=== PATIENT | male | born 1990 | race Caucasian/White ===

== ENCOUNTER 2024-05-04 20:08 | Emergency (ER) | payer OTHER ==
[2024-05-04 20:54] LABS: BASOPHILS % (AUTO) 0.1 %; EOSINOPHILS % (AUTO) 0.1 %; HCT - HEMATOCRIT 43.9 % (42.0-52.0); HGB - HEMOGLOBIN 14.5 g/dL (14.0-18.0); LYMPHOCYTES # (AUTO) 1.5 10^3/uL (1.5-3.5); LYMPHOCYTES % (AUTO) 11.3 %; MEAN CORPUSCULAR HEMOGLOBIN 28.4 pg (27.0-31.0); MEAN CORPUSCULAR VOLUME 85.9 fL (80.0-94.0); MEAN PLATELET VOLUME 8.9 fL (7.4-11.4); MONOCYTES # (AUTO) 0.8 10^3/uL (0.0-1.0); MONOCYTES % (AUTO) 6.3 %; NEUTROPHILS # (AUTO) 10.6 10^3/uL (1.5-6.6); NEUTROPHILS % (AUTO) 81.9 %; PLT - PLATELET COUNT 247 10^3/uL (130-450); RED BLOOD COUNT 5.11 10^6/uL (4.70-6.10); RED CELL DISTRIBUTION WIDTH 13.4 % (12.0-15.0); WHITE BLOOD COUNT 12.9 x10^3/uL (4.8-10.8)
[2024-05-04 21:06] LABS: ALBUMIN 4.1 g/dL (3.2-5.5); ALBUMIN/GLOBULIN RATIO 1.4 (1.0-2.2); BILIRUBIN,TOTAL 0.6 mg/dL (0.2-1.0); CALCIUM 9.3 mg/dL (8.5-10.3); CREATININE 1.3 mg/dL (0.6-1.3); POTASSIUM 4.3 mmol/L (3.5-4.5); TOTAL PROTEIN 7.1 g/dL (6.4-8.9)
[2024-05-04 21:06] LABS: BILIRUBIN,URINE NEGATIVE (NEGATIVE); GLUCOSE, URINE (UA) NEGATIVE (NEGATIVE); KETONES,URINE (UA) NEGATIVE (NEGATIVE); LEUKOCYTE ESTERASE, URINE NEGATIVE (NEGATIVE); NITRITE,URINE NEGATIVE (NEGATIVE); OCCULT BLOOD,URINE TRACE-INTA (NEGATIVE); PROTEIN,URINE NEGATIVE (NEGATIVE); UROBILINOGEN,URINE 0.2 (NORMAL) E.U./dL (NORMAL)
[2024-05-04 21:08] LABS: CLARITY,URINE CLEAR (CLEAR)
[2024-05-04] MEDS: SODIUM CHLORIDE 0.9% 1,000 ML IV STA (23:05)
[2024-05-04] MEDS: ONDANSETRON 4 MG/2 ML VIAL IVP STA (23:06)
[2024-05-04] MEDS: SODIUM CHLORIDE 0.9% 1,000 ML IV ONE (23:07)
[2024-05-05] MEDS ORDERED: iohexoL-300 100 ML VIAL ONE (00:51)
[2024-05-05] MEDS: iohexoL-300 100 ML VIAL IVP ONE (01:12)
--- NOTE | 2024-05-05 01:21 | CT Report ---
PROCEDURE: Abdomen/Pelvis W INDICATIONS: RLQ abd pain CONTRAST: OMNI 300, 100mls TECHNIQUE: After the administration of intravenous contrast, a CT scan of the abdomen and pelvis was performed. Images were recorded and evaluated at appropriate window settings. Reformats: coronal and sagittal. F or radiation dose reduction, the following was used: automated exposure control, adjustment of mA and /or kV according to patient size. COMPARISON: None. FINDINGS: Image quality: Diagnostic. Lower chest: Unremarkable. Liver: No solid mass. Gallbladder: No radiopaque stones or wall thickening. Biliary tree: No intrahepatic or extrahepatic dilation, accounting for age. Spleen: No splenomegaly. Pancreas: No pancreatic ductal dilation. Adrenals: No adrenal nodule. Kidneys and ureters: Obstructing 2 mm stone in the distal right ureter, resulting in moderate hydrone phrosis and delayed right nephrogram. Stomach, bowel and peritoneum: No gastric or small bowel dilation. No abnormal wall thickening. No pa thologic free fluid. Normal appendix. Lymph nodes: No central or retroperitoneal adenopathy. Vessels: No infrarenal aortic aneurysm. Patent portal vein. PELVIS Reproductive organs: Unremarkable. Bladder: No abnormal wall thickening, accounting for underdistention. Pelvic lymph nodes: No pelvic adenopathy by size criteria. Bones: No aggressive osseous abnormality. Other: No significant ventral or inguinal hernia. IMPRESSION: Obstructing 2 mm stone in the distal right ureter, resulting in moderate hydronephrosis and delayed r ight nephrogram. Normal appendix. Reviewed by: Henry Blackmon MD on 05/05/2024 1:20 AM PDT Approved by: Henry Blackmon MD on 05/05/2024 1:20 AM PDT Station ID: [id number]
--- NOTE | 2024-05-05 01:54 | ED Physician Documentation ---
PD HPI ABD PAIN - Stated complaint Stated Complaint: RT SIDE ABD PX - Chief complaint Chief Complaint: Abd Pain - History obtained from History obtained from: Patient - Additional information Additional information: The patient comes to the emergency department chief complaint of right flank pain that his condensed down into his right lower quadrant since it started at 7:00 this morning. He states that he vomited was but has not had any fevers, chills, dysuria, diarrhea, constipation, or any other symptoms of illness. He states his pain is about a 4 out of 10 currently. No other complaints at this time. He is otherwise healthy. No surgeries on his abdomen. PD PAST MEDICAL HISTORY - Past Medical History Past Medical History: No Cardiovascular: None Respiratory: None Neuro: None Endocrine/Autoimmune: None GI: None : None HEENT: None Psych: None Musculoskeletal: None Derm: None - Past Surgical History Past Surgical History: No - Present Medications Home Medications: Ambulatory Orders Medication Instructions Recorded Confirmed HYDROcod/ACETAM 5/325 [[place] 5/325] 1 - 2 tablet PO Q6H PRN #10 tablet 05/05/24 - Allergies Allergies/Adverse Reactions: Allergies Allergy/AdvReac Type Severity Reaction Status Date / Time No Known Drug Allergies Allergy Verified 05/04/24 20:35 - Social History Does the pt smoke?: No Smoking Status: Never smoker Does the pt drink ETOH?: No Does the pt have substance abuse?: No - Immunizations Immunizations are current?: Yes - POLST Patient has POLST: No PD ED PE NORMAL - Vitals Vital signs reviewed: Yes - General General: Alert and oriented X 3, No acute distress, Well developed/nourished - HEENT HEENT: Atraumatic, EOMI, Moist mucous membranes - Neck Neck: Supple, no meningeal sign - Cardiac Cardiac: RRR, No murmur - Respiratory Respiratory: No respiratory distress, Clear bilaterally - Abdomen Abdomen: Soft, Non distended, Other (Mild right lower quadrant tenderness, no rebound or guarding.) - Back Back: No CVA TTP - Derm Derm: Normal color, Warm and dry, No rash - Extremities Extremities: No deformity - Neuro Neuro: Alert and oriented X 3 - Psych Psych: Normal mood, Normal affect Results - Vitals Vitals: Vital Signs - 24 hr 05/04/24 05/04/24 05/05/24 20:29 23:00 01:00 Temperature 36.8 C Heart Rate 60 65 68 Respiratory 16 18 18 Rate Blood Pressure 141/86 H 137/84 H 129/87 H O2 Saturation 100 99 99 05/05/24 02:19 Temperature Heart Rate 85 Respiratory 18 Rate Blood Pressure 156/100 H O2 Saturation 98 Oxygen O2 Source Room air - Labs Labs: Laboratory Tests 05/04/24 05/04/24 05/04/24 20:48 20:48 20:50 WBC 12.9 H RBC 5.11 Hgb 14.5 Hct 43.9 MCV 85.9 MCH 28.4 MCHC 33.0 RDW 13.4 Plt Count 247 MPV 8.9 Neut # (Auto) 10.6 H Lymph # (Auto) 1.5 [place] # (Auto) 0.8 Eos # (Auto) 0.0 Baso # (Auto) 0.0 Absolute Nucleated RBC 0.00 Nucleated RBC % 0.0 Sodium 137 Potassium 4.3 Chloride 103 Carbon Dioxide 25 Anion Gap 9.0 BUN 16 Creatinine 1.3 Estimated GFR (MDRD) 64 L Glucose 121 H Calcium 9.3 Total Bilirubin 0.6 AST 17 ALT 15 Alkaline Phosphatase 67 Total Protein 7.1 Albumin 4.1 Globulin 3.0 Albumin/Globulin Ratio 1.4 Lipase 12 Urine Color YELLOW Urine Clarity CLEAR Urine pH 7.0 Ur Specific [place] 1.025 Urine Protein NEGATIVE Urine Glucose (UA) NEGATIVE Urine Ketones NEGATIVE Urine Occult Blood TRACE-INTA Urine Nitrite NEGATIVE Urine Bilirubin NEGATIVE Urine Urobilinogen 0.2 (NORMAL) Ur Leukocyte Esterase NEGATIVE Ur Microscopic Review NOT INDICATED Urine Culture Comments NOT INDICATED - Rads (name of study) CT abdomen and pelvis Relevant Findings:: Final report received, See rad report (2 mm calculus distal right ureter.) PD Medical Decision Making - ED course Complexity details: reviewed results, re-evaluated patient, considered differential, d/w patient ED course: The patient was treated symptomatically with IV fluids and Zofran. Laboratory studies were unremarkable. He was sent for CT scan of the abdomen and pelvis given his right lower quadrant abdominal pain and this did demonstrate a kidney stone that had passed through most of the ureter. Given its 2 mm size, I discussed with the patient that I do expect it to pass without difficulty; however, if the patient is still having pain in the next couple of weeks, he should consider following up with his urologist and he has been given the contact information for urology. We have discussed symptomatic management at home and the usual indications for return. Departure - Departure Disposition: 01 Home, Self Care Clinical Impression: Kidney stone on right side Condition: Stable Instructions: ED Stone Renal W Colic Follow-Up: Rohit Turk MD [Provider Admit Priv/Credential] - Prescriptions: HYDROcod/ACETAM 5/325 [[place] 5/325] 1 - 2 tablet PO Q6H PRN #10 tablet PRN Reason: Pain Comments: Your labs look good. Your CT scan shows a kidney stone passing on the right that has almost reached your bladder. It is fairly small and should pass on its own without difficulty, but may cause some pain as it finishes going down and especially, as it pops into the bladder. As such, you have been given prepacks of medication for pain and nausea from the emergency department and a prescription for further pain medicine, should you need it, has been electronically transmitted to the [facility] pharmacy in [place]. Please pick this up and take as needed. Most likely, the stone will pass without difficulty, and there is no evidence of further stones to pass at this time. However, if you do not notice resolution of your pain in the next week, please call the urologist office to schedule a follow-up appointment for reevaluation. Then member for the office has that included here on your paperwork. Please be sure you are drinking plenty of water to help flush the stone out. Forms: Activity restrictions Discharge Date/Time: 05/05/24 02:18
[2024-05-05] MEDS: HYDROcod/ACET 5/325 Prepack 4 PO STA (02:11)
[2024-05-05] MEDS: ONDANSETRON ODT 4 MG Prepack 2 TL PRN (02:12)
[2024-05-05 02:25] VITALS: BP 156/100; O2SAT 98
== END 2024-05-05 02:18 | disposition home or self-care (01) ==
LOC: ED 20:08
DX: N20.0 Calculus of kidney (principal)
CPT/HCPCS: 36415; 74177; 80053; 81003; 83690; 85025; 96374; 99284; A9270; Q9967; 81001; 87086